=== PATIENT | female | born 1995 | race Caucasian/White ===

== ENCOUNTER 2018-08-09 11:06 | Emergency (ER) | payer MEDICAID ==
[~2018-08-09] VITALS: Ht 172.7 cm; Wt 78.9 kg
[2018-08-09 11:13] VITALS: Ht 172.7 cm; Wt 78.9 kg
[2018-08-09 11:50] VITALS: BP 123/82
== END 2018-08-09 11:50 | disposition home or self-care (01) ==
LOC: ED 11:06
DX: S93.402A Sprain of unspecified ligament of left ankle, initial encounter (principal); W05.1XXA Fall from non-moving nonmotorized scooter, initial encounter; Y93.I9 Activity, other involving external motion; Y92.413 State road as the place of occurrence of the external cause; Y99.8 Other external cause status

== ENCOUNTER 2019-06-04 12:12 | Emergency (ER) | payer SELFPAY ==
[~2019-06-04] VITALS: Ht 172.7 cm; Wt 85.3 kg
[2019-06-04 12:32] VITALS: BP 129/71; Ht 172.7 cm; Wt 85.3 kg
== END 2019-06-04 13:12 | disposition home or self-care (01) ==
LOC: ED 12:12
DX: K61.1 Rectal abscess (principal)